=== PATIENT | female | born 2000 | race Hispanic/Latino ===

== ENCOUNTER 2022-10-22 16:41 | Emergency (ER) | payer OTHER ==
[~2022-10-22] VITALS: Ht 162.6 cm; Wt 62.6 kg
[2022-10-22] MEDS ORDERED: ACETAMINOPHEN 325 MG TAB PO ONE (17:30)
[2022-10-22] MEDS ORDERED: BACITRACIN15 GM TOP (18:52)
== END 2022-10-22 19:00 | disposition home or self-care (01) ==
LOC: ER 16:57
DX: S50.312A Abrasion of left elbow, initial encounter (principal); W01.198A Fall on same level from slipping, tripping and stumbling with subsequent striking against other object, initial encounter; Z33.1 Pregnant state, incidental
CPT/HCPCS: 99283